=== PATIENT | female | born 1960 | race Caucasian/White ===

== ENCOUNTER 2016-12-21 17:04 | Emergency (ER) | payer MEDICAID ==
--- NOTE | 2016-12-21 17:10 | NUR ---
PATIENT REFUSED TO BE TRIAGED. PATIENT REFUSED TO BE SEEN BY MD.
== END 2016-12-21 17:28 | disposition left against medical advice (07) ==
LOC: ER 17:08
DX: Z53.21 Procedure and treatment not carried out due to patient leaving prior to being seen by health care provider (principal)